=== PATIENT | male | born 1980 ===

== ENCOUNTER 2018-05-22 03:52 | Emergency (ER) | payer SELFPAY ==
[2018-05-22 04:50] VITALS: BMI 24.0
[2018-05-22] MEDS ORDERED: Sodium Chloride 0.9% 1,000 ML IV STA (04:54)
[2018-05-22 05:01] VITALS: TEMP 98.1; O2SAT 100
--- NOTE | 2018-05-22 05:02 | ED PDOC ---
Arrival/HPI - General Time Seen by Provider: 05/22/18 04:10 Historian: Patient - History of Present Illness Narrative History of Present Illness (Text): 05/22/18 04:57 38 year old male, with no significant past medical history, who presents to the emergency department complaining of right upper quadrant discomfort x 3 weeks post prandial. Patient notes associated nausea. Patient denies any fever, chills , chest pain, shortness of breath, vomiting, diarrhea, back pain, neck pain, headache, dizziness, or any other complaints. Time/Duration: < month Symptom Onset: Gradual Symptom Course: Unchanged Activities at Onset: Light Context: Home Past Medical History - Provider Review Nursing Documentation Reviewed: Yes - Psychiatric Hx Substance Use: No - Anesthesia Hx Anesthesia: No Family/Social History - Physician Review Nursing Documentation Reviewed: Yes Family/Social History: Unknown Family HX Smoking Status: Never Smoked Hx Alcohol Use: No Hx Substance Use: No Allergies/Home Meds Allergies/Adverse Reactions: Allergies No Known Allergies Allergy (Verified 05/22/18 04:50) Review of Systems - Physician Review All systems were reviewed & negative as marked: Yes - Review of Systems Constitutional: Normal Eyes: Normal ENT: Normal Respiratory: Normal. absent: SOB, Cough Cardiovascular: Normal. absent: Chest Pain Gastrointestinal: Abdominal Pain (RUQ discomfort), Nausea. absent: Diarrhea, Vomiting Genitourinary Male: Normal. absent: Dysuria, Frequency Musculoskeletal: Normal. absent: Back Pain, Neck Pain Skin: Normal. absent: Rash Neurological: Normal. absent: Headache, Dizziness Endocrine: Normal Hemo/Lymphatic: Normal Psychiatric: Normal Physical Exam Vital Signs Temp Pulse Resp BP Pulse Ox 05/22/18 04:20 98.1 F 69 16 139/86 100 - Systems Exam Head: Present: Atraumatic, Normocephalic Pupils: Present: PERRL Extroacular Muscles: Present: EOMI Conjunctiva: Present: Normal Mouth: Present: Moist Mucous Membranes Neck: Present: Normal Range of Motion Respiratory/Chest: Present: Clear to Auscultation, Good Air Exchange. No: Respiratory Distress, Accessory Muscle Use Cardiovascular: Present: Regular Rate and Rhythm, Normal S1, S2. No: Murmurs Abdomen: Present: Tenderness (palpable ruq tenderness). No: Distention, Peritoneal Signs, Rebound, Guarding Back: Present: Normal Inspection Upper Extremity: Present: Normal Inspection. No: Cyanosis, Edema Lower Extremity: Present: Normal Inspection. No: Edema Neurological: Present: GCS=15, CN II-XII Intact, Speech Normal Skin: Present: Warm, Dry, Normal Color. No: Rashes Psychiatric: Present: Alert, Oriented x 3, Normal Insight, Normal Concentration Medical Decision Making ED Course and Treatment: 05/22/18 05:04 Impression: 38 year old male presents to the emergency department complaining of RUQ discomfort x 3 weeks. Plan: -- Labs -- Pepcid -- Toradol -- Zofran -- Sodium Chloride -- US Gallbladder and Pancreas -- Reassess and disposition Progress Notes: 05/22/18 07:00 Patient currently pain free.Will d/c with full follow up care instructions. - Lab Interpretations Lab Results: 05/22/18 05:10 05/22/18 05:10 Lab Results 05/22/18 05:10: WBC 9.2, RBC 5.25, Hgb 15.4, Hct 43.3, MCV 82.5, MCH 29.3, MCHC 35.6, RDW 13.4, Plt Count 189, MPV 10.3 05/22/18 05:10: Sodium 143, Potassium 4.0, Chloride 104, Carbon Dioxide 29, Anion Gap 15, BUN 18, Creatinine 0.9, Est GFR ( Amer) > 60, Est GFR (Non- Af Amer) > 60, Random Glucose 110, Calcium 8.8, Total Bilirubin 0.7, AST 32, ALT 86 H, Alkaline Phosphatase 86, Total Protein 7.0, Albumin 4.2, Globulin 2.8 , Albumin/Globulin Ratio 1.5, Lipase 48 - RAD Interpretation Radiology Orders: 05/22/18 04:54 GALLBLADDER & PANCREAS [US] Stat - Medication Orders Current Medication Orders: Discontinued Medications Famotidine (Pepcid) 20 mg IVP STAT STA Stop: 05/22/18 04:55 Last Admin: 05/22/18 05:25 Dose: 20 mg IVP Administration Document 05/22/18 05:25 CNR (Rec: 05/22/18 05:25 CNR [id number]) Charges for Administration # of IVP Administrations 1 Sodium Chloride (Sodium Chloride 0.9%) 1,000 mls @ 999 mls/hr IV .Q1H1M STA Stop: 05/22/18 05:54 Last Admin: 05/22/18 05:24 Dose: 999 mls/hr eMAR Start Stop Document 05/22/18 05:24 CNR (Rec: 05/22/18 05:25 CNR [id number]) Intravenous Solution Start Date 05/22/18 Start Time 05:25 End Date 05/22/18 End time 06:25 Total Infusion Time 60 Ketorolac Tromethamine (Toradol) 30 mg IVP ONCE ONE Stop: 05/22/18 04:55 Last Admin: 05/22/18 05:25 Dose: 30 mg MAR Pain Assessment Document 05/22/18 05:25 CNR (Rec: 05/22/18 05:25 CNR [id number]) Pain Reassessment Is this a pain reassessment? No IVP Administration Document 05/22/18 05:25 CNR (Rec: 05/22/18 05:25 CNR [id number]) Charges for Administration # of IVP Administrations 1 Ondansetron HCl (Zofran Inj) 4 mg IVP ONCE ONE Stop: 05/22/18 04:55 Last Admin: 05/22/18 05:25 Dose: 4 mg IVP Administration Document 05/22/18 05:25 CNR (Rec: 05/22/18 05:25 CNR [id number]) Charges for Administration # of IVP Administrations 1 - Scribe Statement The provider has reviewed the documentation as recorded by the Samanthaibyuki Handy All medical record entries made by the Scribyuki were at my direction and personally dictated by me. I have reviewed the chart and agree that the record accurately reflects my personal performance of the history, physical exam, medical decision making, and the department course for this patient. I have also personally directed, reviewed, and agree with the discharge instructions and disposition. Disposition/Present on Arrival - Present on Arrival Any Indicators Present on Arrival: No History of DVT/PE: No History of Uncontrolled Diabetes: No Urinary Catheter: No History of Decub. Ulcer: No History Surgical Site Infection Following: None - Disposition Have Diagnosis and Disposition been Completed?: Yes Diagnosis: Cholelithiasis Disposition: HOME/ ROUTINE Disposition Time: 07:00 Patient Plan: Discharge Patient Problems: Current Active Problems Problem Status Onset Abdominal pain Acute Condition: GOOD Discharge Instructions (ExitCare): Gallstones (DC) Additional Instructions: Avoid fatty foods/medication as prescribed/follow up with your doctor this week/ any recurrent persistent symptoms return to the emergency room Prescriptions: Phenobarb/Hyoscy/Atropine/Scop [ Tablet] 16.2 mg PO Q6 PRN #12 tablet PRN Reason: Dyspepsia Referrals: Steven Skinner MD [Staff Provider] - Follow up with primary
[2018-05-22 05:40] LABS: ALB/GLOB RATIO 1.5 (1.1-1.8); ALBUMIN 4.2 g/dL (3.0-4.8); ALT/SGPT 86 U/L (7-56); AST/SGOT 32 U/L (17-59); BLOOD UREA NITROGEN 18 mg/dL (7-21); CALCIUM 8.8 mg/dL (8.4-10.5); GFR AFRICAN-AMERICAN > 60; GFR NON-AFRICAN AMERICAN > 60; LIPASE 48 U/L (23-300)
[2018-05-22 05:45] LABS: HEMOGLOBIN 15.4 g/dL (14.0-18.0); MEAN CELL VOLUME 82.5 fl (80.0-105.0); MEAN CORPUSCULAR HEMOGLOBIN 29.3 pg (25.0-35.0); MEAN CORPUSCULAR HGB CONC 35.6 g/dl (31.0-37.0); MEAN PLATELET VOLUME 10.3 fl (7.0-11.0); RBC 5.25 10^6/uL (3.5-6.1); RED CELL DISTRIBUTION WIDTH 13.4 % (11.5-14.5); WHITE BLOOD COUNT 9.2 10^3/ul (4.5-11.0)
[2018-05-22 07:27] VITALS: BP 117/62; PULSE 80; RESP 18
--- NOTE | 2018-05-22 09:32 | US ---
Date of service: 05/22/2018 HISTORY: Abdominal pain COMPARISON: None. TECHNIQUE: Sonographic evaluation of the right upper quadrant of the abdomen. FINDINGS: LIVER: Measures 15.7 cm in length. There is mild diffuse increased echogenicity of the liver parenchyma. No mass. No intrahepatic bile duct dilatation. GALLBLADDER: There are multiple gallstones. There is also sludge in the gallbladder. No wall thickening or pericholecystic fluid. The sonographic Ontiveros's sign is negative COMMON BILE DUCT: Measures 5.9 mm. No stones. Mild dilatation. PANCREAS: Unremarkable as visualized. No mass. No ductal dilatation. RIGHT KIDNEY: Measures 12.5 cm in length. Normal echogenicity. No calculus, mass, or hydronephrosis. AORTA: No aneurysmal dilatation. IVC: Unremarkable. OTHER FINDINGS: None . IMPRESSION: Cholelithiasis. Mild dilatation of the common bile duct without evidence for choledocholithiasis. No evidence for acute cholecystitis. Diffuse increased echogenicity in the liver may reflect hepatic steatosis however parenchymal infectious/ inflammatory etiologies cannot be entirely excluded. Clinical and laboratory correlation is advised.
== END 2018-05-22 07:26 | disposition home or self-care (01) ==
LOC: ED 03:52
DX: K80.20 Calculus of gallbladder without cholecystitis without obstruction (principal)
CPT/HCPCS: 76705; 80053; 83690; 85027; 96361; 96374; 96375; 99283; J1885; J2405; J7030

== ENCOUNTER 2018-05-28 00:12 | Observation (INO) | payer OTHER ==
[2018-05-28] MEDS ORDERED: Sodium Chloride 0.9% 1,000 ML IV STA (00:32)
[2018-05-28] MEDS ORDERED: Morphine 2 mg/ml ISec IVP STA (00:32)
--- NOTE | 2018-05-28 00:37 | ED PDOC ---
Arrival/HPI - General Historian: Patient - History of Present Illness Time/Duration: 4-6 hours Symptom Onset: Gradual Symptom Course: Worsening Severity Level: 9, Severe <Judy Gan - Last Filed: 05/28/18 02:13> <Nando De DO - Last Filed: 05/28/18 02:56> - General Chief Complaint: Abdominal Pain Time Seen by Provider: 05/28/18 00:15 - History of Present Illness Narrative History of Present Illness (Text): 05/28/18 00:34 Patient is a 38 year old male with no significant past medical history who presents to the ED for RUQ pain that started 4 hours ago. Patient states that he was at work when the pain started. Patient was recently seen in the ED last week for the same complaint. He was found to have gallstones and has not followed up for this. At this time he states that the pain is more severe, rates it a 9/10. Constant in nature, nonradiating. He had one episode of NBNB vomiting prior to arrival. Pain is worse with breathing, denies any alleviating factors. Denies fevers, chills, headaches, dizziness, cp, palpitations, sob, urinary symptoms, diarrhea/constipation. (Judy Gan) Past Medical History - Provider Review Nursing Documentation Reviewed: Yes - Past Medical History Past Medical History: No Previous - Cardiac Hx Cardiac Disorders: No - Pulmonary Hx Respiratory Disorders: No - Neurological Hx Neurological Disorder: No - HEENT Hx HEENT Disorder: No - Renal Hx Renal Disorder: No - Endocrine/Metabolic Hx Endocrine Disorders: No - Hematological/Oncological Hx Blood Disorders: No - Gastrointestinal Hx Gall Bladder Disease: Yes - Psychiatric Hx Substance Use: No - Anesthesia Hx Anesthesia: No <Judy Gan - Last Filed: 05/28/18 02:13> Family/Social History - Physician Review Nursing Documentation Reviewed: Yes Family/Social History: No Known Family HX Smoking Status: Never Smoked Hx Alcohol Use: No Hx Substance Use: No Hx Substance Use Treatment: No <Judy Gan - Last Filed: 05/28/18 02:13> Allergies/Home Meds <Judy Gan - Last Filed: 05/28/18 02:13> <Nando De DO - Last Filed: 05/28/18 02:56> Allergies/Adverse Reactions: Allergies No Known Allergies Allergy (Verified 05/22/18 04:50) Review of Systems - Review of Systems Constitutional: Normal. absent: Fatigue, Fevers Eyes: Normal ENT: Normal Respiratory: Normal. absent: SOB, Cough Cardiovascular: Normal. absent: Chest Pain, Palpitations Gastrointestinal: Abdominal Pain, Nausea, Vomiting. absent: Constipation, Diarrhea Genitourinary Male: Normal. absent: Dysuria, Hematuria Neurological: Normal. absent: Headache, Dizziness <Judy Gan - Last Filed: 05/28/18 02:13> - Physician Review All systems were reviewed & negative as marked: Yes <Nando De DO - Last Filed: 05/28/18 02:56> Physical Exam Vital Signs Reviewed: Yes Temperature: Afebrile Blood Pressure: Normal Pulse: Regular Respiratory Rate: Normal Appearance: Positive for: Uncomfortable Pain Distress: Severe Mental Status: Positive for: Alert and Oriented X 3 - Systems Exam Head: Present: Atraumatic, Normocephalic Pupils: Present: PERRL Extroacular Muscles: Present: EOMI Conjunctiva: Present: Normal Mouth: Present: Moist Mucous Membranes Neck: Present: Normal Range of Motion Respiratory/Chest: Present: Clear to Auscultation, Good Air Exchange. No: Respiratory Distress Cardiovascular: Present: Regular Rate and Rhythm, Normal S1, S2 Abdomen: Present: Tenderness (RUQ pain, +murphys sign), Normal Bowel Sounds, Guarding. No: Rebound Upper Extremity: Present: Normal Inspection, Normal ROM, NORMAL PULSES Lower Extremity: Present: Normal Inspection, NORMAL PULSES. No: CALF TENDERNESS Neurological: Present: GCS=15, CN II-XII Intact Skin: Present: Warm, Dry, Normal Color Psychiatric: Present: Alert, Oriented x 3 <Judy Gan - Last Filed: 05/28/18 02:13> <Nando De DO - Last Filed: 05/28/18 02:56> Vital Signs Temp Pulse Resp BP Pulse Ox 05/28/18 02:01 61 14 116/76 100 05/28/18 00:26 98.1 F 65 16 100 05/28/18 00:24 98.2 F 65 17 129/85 100 Medical Decision Making - Lab Interpretations I have reviewed the lab results: Yes - EKG Interpretation Interpreted by ED Physician: Yes Type: 12 lead EKG <Judy Gan - Last Filed: 05/28/18 02:13> <Nando De DO - Last Filed: 05/28/18 02:56> ED Course and Treatment: 05/28/18 00:39 Patient is a 38 year old male with no significant past medical history who presents with worsening RUQ pain. founder ceo & president paged to come evaluate the patient for possible acute cholecystitis. Orders listed below: Labs Morphine 2mg IVP Zofran 4mg IVP NS bolus 05/28/18 01:15 Zosyn, blood cultures and EKG ordered. Will admit to general surgery for observation. (Judy Gan) Patient Seen With Resident: In agreement with resident note which contains more details about the patient. Patient was seen and evaluated with resident. Came up with plan and treatment together. 38 year old male presents complaining of right upper qudrant pain that began 4 hours ago. Patient was diagnosed with gallstones last week. Plan: -- Labs -- EKG -- Dilaudid, Morphine, IV fluids, Zofran Inj, Zosyn 4.5 gm in NS 100ml -- Blood Culture -- Urinalysis w/ micro -- Reassess and disposition (Nando De DO) - Lab Interpretations Lab Results: 05/28/18 00:55 05/28/18 00:55 Lab Results 05/28/18 00:55: Sodium 143, Potassium 4.0, Chloride 98, Carbon Dioxide 29, Anion Gap 20, BUN 21, Creatinine 1.1, Est GFR ( Amer) > 60, Est GFR (Non- Af Amer) > 60, Random Glucose 139 H, Calcium 9.7, Total Bilirubin 0.9, AST 58, ALT 105 H, Alkaline Phosphatase 105, Total Protein 8.6 H, Albumin 5.2 H, Globulin 3.5, Albumin/Globulin Ratio 1.5 05/28/18 00:55: PT 11.4, INR 1.00, APTT 30.9 05/28/18 00:55: WBC 11.9 H D, RBC 5.75, Hgb 17.2, Hct 47.1, MCV 81.9, MCH 29.9, MCHC 36.5, RDW 13.2, Plt Count 215, MPV 10.4, Gran % 81.2 H, Lymph % (Auto) 15.6 L, Steele % (Auto) 2.5, Eos % (Auto) 0.5 L, Baso % (Auto) 0.2, Gran # 9.66 H , Lymph # (Auto) 1.9, Steele # (Auto) 0.3, Eos # (Auto) 0.1, Baso # (Auto) 0.02 - EKG Interpretation EKG Interpretation (Text): 05/28/18 01:47 EKG: NSR 75 bpm, prolonged QTc 473 ms, no ST-T wave changes (Judy Gan) - Medication Orders Current Medication Orders: Hydromorphone HCl (Dilaudid) 0.5 mg IVP Q4 PRN PRN Reason: Pain, severe (8-10) Sodium Chloride (Sodium Chloride 0.9%) 1,000 mls @ 125 mls/hr IV .Q8H JEF Last Admin: 05/28/18 01:45 Dose: 125 mls/hr eMAR Start Stop Document 05/28/18 01:45 (Rec: 05/28/18 02:21 [id number] Intravenous Solution Start Date 05/28/18 Start Time 01:45 Piperacillin Sod/Tazobactam Sod (Zosyn 3.375 In Ns 100ml) 100 mls @ 200 mls/hr IVPB Q6H JEF PRN Reason: Protocol Stop: 05/28/18 13:59 Morphine Sulfate (Morphine) 2 mg IVP Q3 PRN PRN Reason: Pain, moderate (4-7) Ondansetron HCl (Zofran Inj) 4 mg IVP Q4 PRN PRN Reason: Nausea/Vomiting Discontinued Medications Sodium Chloride (Sodium Chloride 0.9%) 1,000 mls @ 999 mls/hr IV .Q1H1M STA Stop: 05/28/18 01:32 Last Admin: 05/28/18 01:00 Dose: 999 mls/hr eMAR Start Stop Document 05/28/18 01:00 (Rec: 05/28/18 01:05 [id number] Intravenous Solution Start Date 05/28/18 Start Time 01:00 Piperacillin Sod/Tazobactam Sod (Zosyn 4.5 Gm In Ns 100ml) 4.5 gm in 100 mls @ 200 mls/hr IVPB STAT STA PRN Reason: Protocol Stop: 05/28/18 01:41 Last Admin: 05/28/18 01:30 Dose: 200 mls/hr eMAR Start Stop Document 05/28/18 01:30 MS (Rec: 05/28/18 01:31 MS [id number]) Intravenous Solution Start Date 05/28/18 Start Time 01:31 End Date 05/28/18 End time 02:01 Total Infusion Time 30 Morphine Sulfate (Morphine) 2 mg IVP STAT STA Stop: 05/28/18 00:33 Last Admin: 05/28/18 00:45 Dose: 2 mg MAR Pain Assessment Document 05/28/18 00:45 RG (Rec: 05/28/18 01:07 [id number] Pain Reassessment Is this a pain reassessment? Yes Presence of Pain Presence of Pain Yes Pain Scale Used Pain Scale Used Numeric Location Left, Right or Bilateral Right Upper or Lower Upper Pain Location Body Site Abdomen Description Description Sharp Intensity of Pain at present 9 Pain Behavior Moaning Rubbing Site IVP Administration Document 05/28/18 00:45 RG (Rec: 05/28/18 01:07 [id number]) Charges for Administration # of IVP Administrations 1 Ondansetron HCl (Zofran Inj) 4 mg IVP STAT STA Stop: 05/28/18 00:33 Last Admin: 05/28/18 00:59 Dose: 4 mg IVP Administration Document 05/28/18 00:59 RG (Rec: 05/28/18 01:06 [id number]) Charges for Administration # of IVP Administrations 1 <Judy Gan - Last Filed: 05/28/18 02:13> - PA / PERFORATOR LOADER / Resident Statement CRISS has reviewed & agrees with the documentation as recorded. / has examined the patient and agrees with the treatment plan. - Scribe Statement The provider has reviewed the documentation as recorded by the Scribe <Nando De DO - Last Filed: 05/28/18 02:56> - Scribe Statement Marquita Peña Provider Scribe Attestation: All medical record entries made by the Scribe were at my direction and personally dictated by me. I have reviewed the chart and agree that the record accurately reflects my personal performance of the history, physical exam, medical decision making, and the department course for this patient. I have also personally directed, reviewed, and agree with the discharge instructions and disposition. (Nando De DO) Disposition/Present on Arrival - Present on Arrival Any Indicators Present on Arrival: No History of DVT/PE: No History of Uncontrolled Diabetes: No Urinary Catheter: No History of Decub. Ulcer: No History Surgical Site Infection Following: None - Disposition Have Diagnosis and Disposition been Completed?: Yes Disposition Time: 01:48 Patient Plan: Observation <Judy Gan - Last Filed: 05/28/18 02:13> - Disposition Disposition Time: 01:10 <Nando De DO - Last Filed: 05/28/18 02:56> - Disposition Diagnosis: Symptomatic cholelithiasis Disposition: HOSPITALIZED Patient Problems: Current Active Problems Problem Status Onset Symptomatic cholelithiasis Acute Condition: STABLE
[2018-05-28] MEDS ORDERED: Piperacill/Tazo 4.5gm in NS 4.5 GM/100 ML BAG IVPB STA (01:12)
--- NOTE | 2018-05-28 01:24 | CP.PCM.HP ---
<Mayra Gauthier - Last Filed: 05/28/18 07:54> History of Present Illness - History of Present Illness History of Present Illness: SURGERY HISTORY AND PHYSICAL FOR DR. HORNE 38yo M with PMHx of cholelithiasis presents to the ED with RUQ abdominal pain. The pain began 4 hours ago. He had 1 episode of vomiting. Last BM a few hours prior. He has been having RUQ discomfort x 3 weeks after eating greasy food for about 3 weeks. He came to the ED on 05/22 where he had an US which showed multiple gallstones with sludge in gallbladder but no wall thickening or pericholecystic fluid. CBD 5.9. His pain improved and he was discharged home from the ED to follow up with a surgeon. Patient reports that he was not able to see a surgeon due to work constraints. He notes that this time, his pain is worse than previous episodes. PMHx: symptomatic cholelithiasis Surgeries: none Allergies: none Medications: none Social history: drinks a couple beers a week. Denies tobacco use. Present on Admission - Present on Admission Any Indicators Present on Admission: No Review of Systems - Review of Systems All systems: reviewed and no additional remarkable complaints except (as per HPI ) Past Patient History - Past Social History Smoking Status: Never Smoked - CARDIAC Hx Cardiac Disorders: No - PULMONARY Hx Respiratory Disorders: No - NEUROLOGICAL Hx Neurological Disorder: No - HEENT Hx HEENT Problems: No - RENAL Hx Chronic Kidney Disease: No - ENDOCRINE/METABOLIC Hx Endocrine Disorders: No - HEMATOLOGICAL/ONCOLOGICAL Hx Blood Disorders: No - GASTROINTESTINAL Hx Gall Bladder Disease: Yes - PSYCHIATRIC Hx Substance Use: No - SURGICAL HISTORY Hx Surgeries: No - ANESTHESIA Hx Anesthesia: No Meds Allergies/Adverse Reactions: Allergies Allergy/AdvReac Type Severity Reaction Status Date / Time No Known Allergies Allergy Verified 05/22/18 04:50 Physical Exam - Constitutional Appears: Well, Non-toxic, Toxic - Head Exam Head Exam: ATRAUMATIC, NORMAL INSPECTION - Eye Exam Eye Exam: EOMI, Normal appearance - Respiratory Exam Respiratory Exam: NORMAL BREATHING PATTERN. absent: Respiratory Distress - Cardiovascular Exam Cardiovascular Exam: +S1, +S2 - GI/Abdominal Exam GI & Abdominal Exam: Hernia (small reducible non tender umbilical hernia), Soft , Tenderness (tender in RUQ). absent: Distended, Firm, Guarding, Mass, Rebound , Rigid Additional comments: + Pinole sign - Extremities Exam Extremities exam: Negative for: calf tenderness, pedal edema - Back Exam Back exam: absent: CVA tenderness (L), CVA tenderness (R) - Neurological Exam Neurological exam: Alert, CN II-XII Intact, Oriented x3 - Psychiatric Exam Psychiatric exam: Normal Affect, Normal Mood - Skin Skin Exam: Dry, Normal Color, Warm Results - Vital Signs Recent Vital Signs: Last Vital Signs Temp 98.1 F 05/28/18 00:26 Pulse 65 05/28/18 00:26 Resp 16 05/28/18 00:26 BP 129/85 05/28/18 00:24 Pulse Ox 100 05/28/18 00:26 - Labs Result Diagrams: 05/28/18 00:55 05/28/18 00:55 Assessment & Plan - Assessment and Plan (Free Text) Assessment: 38yo M with PMHx of cholelithiasis presents with RUQ abdominal pain with symptomatic cholelithiasis - NPO - IV fluids - IV Zosyn - US ordered - Options discussed with patient. Patient agrees for laparoscopic cholecystectomy, possible open with IOC. - Written consent was obtained. - Discussed plan with Dr. Constantine Gauthier PGY-4 <Laurence Horne - Last Filed: 05/28/18 21:07> Results - Vital Signs Recent Vital Signs: Last Vital Signs Temp 97 F L 05/28/18 12:50 Pulse 82 05/28/18 12:50 Resp 18 05/28/18 12:50 BP 122/77 05/28/18 12:50 Pulse Ox 96 05/28/18 12:50 - Labs Result Diagrams: 05/28/18 00:55 05/28/18 00:55 Labs: Laboratory Results - last 24 hr 05/28/18 05/28/18 05/28/18 01:30 01:30 02:06 Urine Color Yellow Urine Appearance Clear Urine pH 6.0 Ur Specific [place] 1.020 Urine Protein Trace H Urine Glucose (UA) Negative Urine Ketones 40 H Urine Blood Trace-lysed H Urine Nitrate Negative Urine Bilirubin Negative Urine Urobilinogen 0.2 Ur Leukocyte Esterase Negative Urine RBC 0 - 2 Urine WBC 0 - 2 Ur Epithelial Cells 0 - 2 Urine Bacteria Few Blood Type O POSITIVE Blood Type Confirm O POSITIVE Antibody Screen Negative BBK History Checked No verified bt Assessment & Plan - Assessment and Plan (Free Text) Plan: I personally saw and examined the patient with the resident staff and agree with the above assessment and plan. I personally reviewed the available diagnostic images and imaging reports. Clinically showing cholecystitis. Second admission in 2 weeks, US with large stone in GB neck. Tenderness on exam. To OR this am for laparoscopic cholecystectomy. Risks and benefits of the procedure including but not limited to, bleeding, infection, bowel injury, bile leak, bile duct injury, and need for open surgery or further intervention. He understands these risks and wishes to proceed. All questions answered and consent obtained. - Date & Time Date: 05/28/18 Time: 07:55
[2018-05-28] MEDS ORDERED: HYDROmorphone 0.5 mg/0.5 ml ISec IVP PRN ×2 (01:26→11:51)
[2018-05-28] MEDS ORDERED: Morphine 2 mg/ml ISec IVP PRN (01:26)
[2018-05-28] MEDS ORDERED: Sodium Chloride 0.9% 1,000 ML IV SCH (01:30)
[2018-05-28 01:31] LABS: BASO # 0.02 K/mm3 (0.0-2.0); BASO % 0.2 % (0.0-3.0); EOS # 0.1 (0.0-0.7); EOS % 0.5 % (1.5-5.0); GRAN # 9.66 (1.4-6.5); GRAN % 81.2 % (50.0-68.0); HEMOGLOBIN 17.2 g/dL (14.0-18.0); LYMPH # 1.9 (1.2-3.4); LYMPH % 15.6 % (22.0-35.0); MEAN CELL VOLUME 81.9 fl (80.0-105.0); MEAN CORPUSCULAR HEMOGLOBIN 29.9 pg (25.0-35.0); MEAN CORPUSCULAR HGB CONC 36.5 g/dl (31.0-37.0); MEAN PLATELET VOLUME 10.4 fl (7.0-11.0); MONO # 0.3 (0.1-0.6); MONO % 2.5 % (1.0-6.0); RBC 5.75 10^6/uL (3.5-6.1); RED CELL DISTRIBUTION WIDTH 13.2 % (11.5-14.5); WHITE BLOOD COUNT 11.9 10^3/ul (4.5-11.0)
[2018-05-28 01:36] LABS: PARTIAL THROMBOPLASTIN TIME 30.9 Seconds (25.1-36.5); PROTHROMBIN TIME 11.4 SECONDS (9.4-12.5)
[2018-05-28 01:48] LABS: URINE BILIRUBIN NEGATIVE (NEGATIVE); URINE BLOOD TRACE-LYSED (NEGATIVE); URINE GLUCOSE (UA) NEGATIVE (NEGATIVE); URINE LEUKOCYTE ESTERASE NEGATIVE Leu/uL (NEGATIVE); URINE PROTEIN TRACE mg/dL (<30 mg/dL); URINE UROBILINOGEN 0.2 E.U./dL (<1 E.U./dL)
[2018-05-28 01:58] LABS: URINE APPEARANCE CLEAR (CLEAR); URINE COLOR YELLOW (YELLOW)
[2018-05-28 01:59] LABS: URINE BACTERIA FEW (NEG); URINE EPITHELIAL CELLS 0 - 2 /hpf (0-5); URINE RBC 0 - 2 /hpf (0-2); URINE WBC 0 - 2 /hpf (0-6)
[2018-05-28 02:04] LABS: BLOOD UREA NITROGEN 21 mg/dL (7-21); CALCIUM 9.7 mg/dL (8.4-10.5); GFR AFRICAN-AMERICAN > 60; GFR NON-AFRICAN AMERICAN > 60
[2018-05-28 02:05] LABS: ALB/GLOB RATIO 1.5 (1.1-1.8); ALBUMIN 5.2 g/dL (3.0-4.8); ALT/SGPT 105 U/L (7-56); AST/SGOT 58 U/L (17-59)
[2018-05-28 05:10] VITALS: BMI 24.9
[2018-05-28] MEDS: Piperacillin/Tazobact 3.375 gm 100 ML IVPB SCH ×2 (06:57→15:45)
[2018-05-28] MEDS ORDERED: Bupivacaine 0.5% Inj(30mL) ONE (08:16)
[2018-05-28] MEDS ORDERED: Iohexol 240 (50 ml) ONE (08:16)
[2018-05-28 08:42] VITALS: RESP 18
[2018-05-28] MEDS ORDERED: Lidocaine 1% w Epi 1:100,000 Inj ONE (08:53)
[2018-05-28] MEDS ORDERED: Bupivacaine 0.25% Inj(30mL) ONE ×2 (08:53→14:56)
[2018-05-28] MEDS ORDERED: Propofol 10 mg/ml Inj (20 ML) ONE (08:59)
[2018-05-28] MEDS ORDERED: Succinylcholine 200 mg/10 ml Inj IV ONE (09:00)
[2018-05-28] MEDS ORDERED: Neostigmine Methylsulfate 3mg/3ml Syringe IV ONE (09:00)
[2018-05-28] MEDS ORDERED: Rocuronium 10 mg/ml (5 ml) ONE (09:00)
[2018-05-28] MEDS ORDERED: Lidocaine 1% Inj (20ml) ONE (09:00)
--- NOTE | 2018-05-28 09:41 | US ---
Date of service: 05/28/2018 HISTORY: Cholecystitis COMPARISON: None. TECHNIQUE: Sonographic evaluation of the abdomen. FINDINGS: LIVER: Measures cm. Normal echogenicity of the liver parenchyma. No mass. No intrahepatic bile duct dilatation. GALLBLADDER: Thickened gallbladder wall measuring 6 millimeters with calculi and sludge suspicious for acute cholecystitis. COMMON BILE DUCT: Measures mm. No stones. No dilatation. PANCREAS: Unremarkable as visualized. No mass. No ductal dilatation. RIGHT KIDNEY: Measures cm. Normal echogenicity. No calculus, mass, or hydronephrosis. LEFT KIDNEY: Measures cm. Normal echogenicity. No calculus, mass, or hydronephrosis. SPLEEN: Normal in size and contour. No mass. AORTA: No aneurysmal dilatation. IVC: Unremarkable. OTHER FINDINGS: None. IMPRESSION: Thickened gallbladder wall measuring 6 millimeters with calculi and sludge suspicious for acute cholecystitis.
--- NOTE | 2018-05-28 11:46 | PCM.SURG1 ---
Surgeon's Initial Post Op Note - Surgeon's Notes Surgeon: Dr. Fitch Shift Supervisor: Yuridia Awan, PGY3; Hina Madera, PGY2; Paul Fitch, OMS3 Type of Anesthesia: General Endo Pre-Operative Diagnosis: Acute cholecystitis, symptomatic cholelithiasis, umbilical hernia Operative Findings: edematous, inflamed, distended gallbladder with gallstones palpated through the gallbladder. adequate hemostasis obtained at the end of the case by electrocautery Post-Operative Diagnosis: same Operation Performed: laparoscopic cholecystectomy, umbilical hernia repair Specimen/Specimens Removed: gallbladder, umbilical hernia contents Estimated Blood Loss: EBL {In ML}: 100 Date of Surgery/Procedure: 05/28/18 Time of Surgery/Procedure: 09:45
[2018-05-28] MEDS ORDERED: Oxycodone/Acetaminophen 5/325 mg Tab PO PRN (11:51)
[2018-05-28 11:59] VITALS: TEMP 97
[2018-05-28] MEDS ORDERED: Lactated Ringer's 1,000 ML IV SCH (12:00)
[2018-05-28 12:40] VITALS: PULSE 82
[2018-05-28 12:57] VITALS: BP 122/77; O2SAT 96
[2018-05-28] MEDS ORDERED: Bupivacaine Liposomal Inj 20 ml ONE (14:55)
--- NOTE | 2018-05-28 17:30 | CARD ---
APPROVED REPORT Date of service: 05/28/2018 EKG Measurement Heart [id number] 128P56 [id number] <Conclusion> Normal sinus rhythm Possible Inferior infarct, age undetermined Abnormal ECG
--- NOTE | 2018-05-28 17:37 | CARD ---
APPROVED REPORT Date of service: 05/28/2018 EKG Measurement Heart [id number] ME 134P55 [id number] <Conclusion> Normal sinus rhythm Nonspecific T wave abnormality Prolonged QT Abnormal ECG
[2018-05-28] MEDS ORDERED: Docusate-Senna 50 mg-8.6 mg Tab PO SCH (18:00)
--- NOTE | 2018-05-28 21:07 | CP.PCM.DIS ---
Provider - Provider Date of Admission: 05/28/18 01:16 Attending physician: Laurence Burton MD Primary care physician: NO FAMILY PROVIDER Time Spent in preparation of Discharge (in minutes): 30 Hospital Course - Lab Results Lab Results: Most Recent Lab Values WBC 11.9 10^3/ul (4.5-11.0) H D 05/28/18 00:55 RBC 5.75 10^6/uL (3.5-6.1) 05/28/18 00:55 Hgb 17.2 g/dL (14.0-18.0) 05/28/18 00:55 Hct 47.1 % (42.0-52.0) 05/28/18 00:55 MCV 81.9 fl (80.0-105.0) 05/28/18 00:55 MCH 29.9 pg (25.0-35.0) 05/28/18 00:55 MCHC 36.5 g/dl (31.0-37.0) 05/28/18 00:55 RDW 13.2 % (11.5-14.5) 05/28/18 00:55 Plt Count 215 10^3/uL (120.0-450.0) 05/28/18 00:55 MPV 10.4 fl (7.0-11.0) 05/28/18 00:55 Gran % 81.2 % (50.0-68.0) H 05/28/18 00:55 Lymph % (Auto) 15.6 % (22.0-35.0) L 05/28/18 00:55 Coal % (Auto) 2.5 % (1.0-6.0) 05/28/18 00:55 Eos % (Auto) 0.5 % (1.5-5.0) L 05/28/18 00:55 Baso % (Auto) 0.2 % (0.0-3.0) 05/28/18 00:55 Gran # 9.66 (1.4-6.5) H 05/28/18 00:55 Lymph # (Auto) 1.9 (1.2-3.4) 05/28/18 00:55 Coal # (Auto) 0.3 (0.1-0.6) 05/28/18 00:55 Eos # (Auto) 0.1 (0.0-0.7) 05/28/18 00:55 Baso # (Auto) 0.02 K/mm3 (0.0-2.0) 05/28/18 00:55 PT 11.4 SECONDS (9.4-12.5) 05/28/18 00:55 INR 1.00 (0.93-1.08) 05/28/18 00:55 APTT 30.9 Seconds (25.1-36.5) 05/28/18 00:55 Sodium 143 mmol/L (132-148) 05/28/18 00:55 Potassium 4.0 mmol/L (3.6-5.0) 05/28/18 00:55 Chloride 98 mmol/L (98-107) 05/28/18 00:55 Carbon Dioxide 29 mmol/L (21-33) 05/28/18 00:55 Anion Gap 20 (10-20) 05/28/18 00:55 BUN 21 mg/dL (7-21) 05/28/18 00:55 Creatinine 1.1 mg/dl (0.8-1.5) 05/28/18 00:55 Est GFR ( Amer) > 60 05/28/18 00:55 Est GFR (Non-Af Amer) > 60 05/28/18 00:55 Random Glucose 139 mg/dL (70-110) H 05/28/18 00:55 Calcium 9.7 mg/dL (8.4-10.5) 05/28/18 00:55 Total Bilirubin 0.9 mg/dL (0.2-1.3) 05/28/18 00:55 AST 58 U/L (17-59) 05/28/18 00:55 ALT 105 U/L (7-56) H 05/28/18 00:55 Alkaline Phosphatase 105 U/L (38-126) 05/28/18 00:55 Total Protein 8.6 g/dL (5.8-8.3) H 05/28/18 00:55 Albumin 5.2 g/dL (3.0-4.8) H 05/28/18 00:55 Globulin 3.5 gm/dL 05/28/18 00:55 Albumin/Globulin Ratio 1.5 (1.1-1.8) 05/28/18 00:55 Lipase 71 U/L (23-300) 05/28/18 00:55 Urine Color Yellow (YELLOW) 05/28/18 01:30 Urine Appearance Clear (CLEAR) 05/28/18 01:30 Urine pH 6.0 (4.7-8.0) 05/28/18 01:30 Ur Specific [place] 1.020 (1.005-1.035) 05/28/18 01:30 Urine Protein Trace mg/dL (<30 mg/dL) H 05/28/18 01:30 Urine Glucose (UA) Negative mg/dL (NEGATIVE) 05/28/18 01:30 Urine Ketones 40 mg/dL (NEGATIVE) H 05/28/18 01:30 Urine Blood Trace-lysed (NEGATIVE) H 05/28/18 01:30 Urine Nitrate Negative (NEGATIVE) 05/28/18 01:30 Urine Bilirubin Negative (NEGATIVE) 05/28/18 01:30 Urine Urobilinogen 0.2 E.U./dL (<1 E.U./dL) 05/28/18 01:30 Ur Leukocyte Esterase Negative [place]/uL (NEGATIVE) 05/28/18 01:30 Urine RBC 0 - 2 /hpf (0-2) 05/28/18 01:30 Urine WBC 0 - 2 /hpf (0-6) 05/28/18 01:30 Ur Epithelial Cells 0 - 2 /hpf (0-5) 05/28/18 01:30 Urine Bacteria Few (NEG) 05/28/18 01:30 Blood Type O POSITIVE 05/28/18 01:30 Blood Type Confirm O POSITIVE 05/28/18 02:06 Antibody Screen Negative 05/28/18 01:30 BBK History Checked No verified bt 05/28/18 01:30 - Hospital Course Hospital Course: 38yo M with PMHx of cholelithiasis presented to the ED with RUQ abdominal pain in the early AM. Patient had had vomiting and pain for approximately 4 hours with 1 episode of vomiting in that time. He had been having RUQ discomfort x 3 weeks after eating greasy food. Upon US being performed there was a stone found to be lodged in the neck of the gallbladder. Patient was consented and booked for a laparoscopic cholecystectomy. Surgery went well. Patient recovered well throughout the day denying n/v/f/c and was walking, urinating on his own and tolerating his diet. Patient was able to tolerate switch to PO pain meds very well. He was given all instructions for his follow up with Dr. Burton as well as postoperative instructions and appropriate medications. Discharge Exam - Head Exam Head Exam: ATRAUMATIC, NORMAL INSPECTION - ENT Exam ENT Exam: Mucous Membranes Moist - Respiratory Exam Respiratory Exam: NORMAL BREATHING PATTERN - Cardiovascular Exam Cardiovascular Exam: +S1, +S2 - GI/Abdominal Exam GI & Abdominal Exam: Soft, Tenderness. absent: Distended, Firm, Guarding, Rebound, Rigid Additional comments: Mild/appropriate incisional tenderness to palpation - Neurological Exam Neurological exam: Alert, Normal Gait, Oriented x3 - Psychiatric Exam Psychiatric exam: Normal Affect, Normal Mood - Skin Skin Exam: Dry, Intact, Normal Color, Warm Additional comments: surgical incisions were clean dry and intact with dermabond in place and no surrounding ecchymosis Discharge Plan - Discharge Medications Prescriptions: RX: Docusate Sodium/Sennosides A [Senokot S 50 MG-8.6 MG] 1 tab PO BID 7 Days # 14 tab RX: Ibuprofen [Motrin Tab] 600 mg PO Q6H 4 Days #16 tab RX: traMADol [Ultram] 50 mg PO Q6H PRN #28 tab PRN Reason: Pain, Severe (8-10) - Follow Up Plan Condition: STABLE Disposition: HOME/ ROUTINE Instructions: Gallstones (DC) Additional Instructions: Discharge plans and instructions You may have a sore throat. Right shoulder discomfort, chest tightness, bilateral shoulder discomfort for 24 to 48 hours after surgery, gradually this will go away. It is caused by carbon dioxide used to inflate your abdomen during the procedure. Soreness in the abdominal area. This ache will gradually go away within a few days. Your abdomen may be distended for a few days after surgery. Diet Maintain a low-fat diet for 4 weeks after surgery. Avoid fatty or heavy foods, especially fried or greasy food, since these foods may cause diarrhea or nausea temporarily following surgery. Drink plenty of water (at least 8 large glasses a day.) Eat lots of whole grains, fruits, green leafy vegetables. Some patients may find that their appetite is poor for a week or two after surgery. This is a normal result of the stress of surgery your appetite should return in time. If you find you are persistently nauseated or unable to take in liquids, contact our office and let us know. Medications: You should resume taking all of your usual home medications, unless told otherwise Take 400-600mg of Ibuprofen every 4-6 hours regularly for the first 3 days this will help with pain and reduce swelling. You can also take the narcotic pain medication prescribed by your doctor. Pain medications may cause nausea on an empty stomach so it is recommended you take with food. You may switch to plain Tylenol, as directed by your surgeon after surgery. Take stool softeners as prescribed while taking narcotic pain medication to avoid constipation. Showering It is OK to shower starting around 36 hours after surgery. You can apply soap and water above your incisions but do not scrub directly over your skin incisions. Gently pat-dry wound area with a soft clean towel. Wound care Your incisions have been closed with dissolvable suture on the inside and a special skin glue over the incision. The skin glue will dissolve so do not attempt to remove it from your skin. Do not expose your incisions to soaking in water (i.e. hot tub, bathtub or swimming pools) for the first 6 weeks after surgery. Do not put any ointment or creams over the incisions for the first 6 weeks after surgery or while the incision is open, draining or scabbed. Activity There are no medical restrictions on activity after surgery. Take your pain medicine as needed in order to stay active, but rest as needed for recovery. Take short walks 2-3 times a day. This will help reduce the risk of blood clots following surgery. You may use the stairs as needed as long as you are not dizzy or weak. Make sure someone is around the first few times you use the stairs or exercise. Avoid pushing, pulling or abdominal pressure for these first 4 weeks. No heavy lifting of more than 10bs for the first 3-4 weeks. You may also feel easily fatigued or tired for a couple of weeks following the surgery. This will improve over the next few weeks. Work Everyone returns to work at different times. If you want, you may return to work right away; however, as a rough guide, most people take at least 2 weeks off prior to returning to work. If you need particular documentation for your job, call the office. Driving You may drive when you: have not needed the narcotic (prescription) pain medications for two days, you can comfortably wear a seatbelt, and you can maneuver your car. Patients typically take 5-7 days. Bowel Movements The first bowel movement may occur anywhere from 1-5 days after surgery as long as you are not nauseated or having abdominal pain this variation is acceptable. Bowel function normalizes with time. Constipation may also be common due to the pain medication. You will be given a prescription for a stool softener and we recommend you take it while taking the pain pills to avoid constipation When to call Dr. Burton's office Call your surgeons office if any of the following occur: Temperature above 100.5oF. Shaking chills Excessive bleeding or unexpected drainage from the incisions. Extreme redness or warmth or drainage around your incision sites. Yellowing of your eyes or skin (jaundice) Dark or rust-colored urine Stool that is cathleen-colored or light in color instead of brown Persistent nausea/vomiting or inability to take in food Leg swelling or shortness of breath Follow-up You need to call Dr. burton's office a few days after being discharged and schedule a follow appointment to see him in clinic 2-3 weeks from the date of your operation. Referrals: FAMILY PROVIDER,NO [Primary Care Provider] - Laurence Burton MD [Staff Provider] -
--- NOTE | 2018-05-28 21:11 | PCM.OP ---
Operative Report - Operative Report Date of Surgery/Procedure: 05/28/18 Time of Surgery/Procedure: 09:30 Surgeon: Laurence Fitch MD Community Life Director: Yuridia Awan, PGY4; Hina Madera DO PGY 3 Anesthesia/Sedation: General endotracheal; 1% lidocaine + 0.25% Marcaine mix local anesthesia Pre-Operative Diagnosis: Calculous cholecystitis with obstruction. Umbilical hernia Post-Operative Diagnosis: Calculous cholecystitis with obstruction. Umbilical hernia Indication for Surgery: This is a 38-year-old male second ED visit in last 2 weeks, initialy biliary colic, now with persistent pain and RUQ tenderness consistent with acute cholecystitis. Details of HPI in clinical chart. Taken to the operating room for laparoscopic cholecystectomy. Patient understands the risks and benefits of the procedure as documented in the clinic chart but specifically risk of cystic duct leak and common bile duct injury, need for open surgery and has consented to the procedure. Operative Findings: 8mm umbilical hernia defect containing preperitoneal fat. Large, acutely inflamed and tense fluid filled gallbladder with large stone at gallbladder neck. Clips in place on cystic duct and cystic artery at end of case without evidence of bleeding or bile leak. Procedure/Operation Description: PROCEDURES PERFORMED: 1) Laparoscopic Cholecystectomy. 2) Umbilical hernia repair, primary suture repair. . DESCRIPTION OF PROCEDURE: The patient was given a preoperative dose of Zosyn 20 minutes before the incision. SCD boots were placed for DVT prophylaxis. The patient had an orogastric tube placed in order to empty the stomach after the induction of general anesthesia. Upper and lower body warmer placed to maintain normothermia. Secure straps placed above and bleow the knees and footboard placed. Arms placed on arm boards out at 80 degress. All bony prominences were padded. A timeout was performed prior to incision. The abdomen was prepped and draped in sterile fashion. All skin incisions were made using an 11 blade scalpel after being pre-anesthetized with local anesthesia. A vertical incision was made through the umbical skin and the umbilical raphe was identified. Herniated fat immediately encounted. Fascial edges cleared of hernia contents with blunt and sharp dissection and removed. Fascial defect measured 8mm was our entry into the abdomen in an open fashion. A 11-mm trocar was inserted in the abdomen and the abdomen was insufflated to 15 mmHg pressure with CO2. A 30- degree viewing scope was then inserted and the abdomen was generally inspected and there was not found to be any additional signs of pathology. In the right upper quadrant, two 5-mm ports were placed after the under direct vision and in the subxiphoid midline, an 12-mm radially dilating port was placed in the similar fashion. . There was significant inflammation in the right upper abdomen and a large dilated gallbladder fundus was identified beneath the liver edge. The fundus of the gallbladder was then retracted to the right upper quadrant and the neck of the gallbladder was visualized. There were omental adhesions to the gallbladder that were taken down with a cominbation of sharp dissection and hook cautery. The peritoneal attachments from the lateral portion of the gallbladder/cystic duct junction were gently dissected and divided to open up the [place]. The [place] was then dissected up onto the liver bed posterior to the gallbladder in order to ensure that this was the cystic duct and not tenting of the common bile duct. The peritoneal attachments on the medial portion of the gallbladder going up to the side of the liver were taken nd distal third of galbbladder dissected off the cystic plate. The critical view was obtained. The cystic artery and duct were sequentially then doubly clipped and ligated and the clips were inspected. . Once this was completed, the gallbladder was dissected free from the liver bed using electrocautery and placed this in an endo catch bag. This was withdrawn through the umbilical port. Becasue of the size of his stone and the remainng hernia contents needing to be cleared from his umbical herna, the umbilcal fascia was incsied and opened further to about 2cm, Hernia fat and sac cleared from fascia and subcutanoues tissue. Once this was done, the gallbladder specimen was then withdrawn and sent to pathology. The abdomen was reinspected. The clips were in good position on the cystic artery and duct stumps and the abdomen was generally irrigated and drained. Once this was done, the ports were removed from the abdomen and the abdomen was desufflated with air. The umbilical port was closed with [id number] 0- Vicryl suture x3, skin incisions closed with 4-0 Vicryl sutures, and finally dermabond applied to skin. The patient tolerated the procedure well and was extubated and stable in recovery after the procedure. . I was present throughout the entirety of the procedure. Sponge, needle and instrument counts were correct. Estimated Blood Loss: 30mL Drains: none Complications: none Specimen: hernia sac. gallbladder Discharge & Condition: stable in recovery after the procedure.
== END 2018-05-28 21:23 | disposition home or self-care (01) ==
LOC: ED 00:12 → ERH 01:16 → 5RSO 02:25
PROVIDERS: ADMIT Surgery; ATTEND Surgery
DX: K80.01 Calculus of gallbladder with acute cholecystitis with obstruction (principal); K42.9 Umbilical hernia without obstruction or gangrene; K66.0 Peritoneal adhesions (postprocedural) (postinfection)
CPT/HCPCS: 47562; 49652; 76700; 80053; 81001; 83690; 85025; 85610; 85730; 86850; 86900; 87040; 88302; 88304; 93005; 96365; 96366; 96375; 96376; 99285; G0378; J0330; J1170; J1885; J2270; J2405; J2543; J2704; J2710; J3010; J7030; J7120

== ENCOUNTER 2019-01-29 11:07 | Outpatient (CLI) | payer OTHER | END 2019-01-29 11:08 | disposition home or self-care (01) | LOC: RAD 11:07 ==

== ENCOUNTER 2019-02-05 08:48 | Outpatient (CLI) | payer OTHER | END 2019-02-05 08:49 | disposition home or self-care (01) | LOC: LAB 08:48 ==